=== PATIENT | male | born 1945 | race Caucasian/White ===

== ENCOUNTER → 2021-12-02 | Outpatient (CLI) | payer MEDICARE | LOC: COL.RAD 09:01 | DX: C61 Malignant neoplasm of prostate (principal); N20.0 Calculus of kidney | CPT/HCPCS: A9503; Q9967 ==

== ENCOUNTER 2021-12-18 11:43 | Inpatient (IN) | payer MEDICARE ==
[~2021-12-18] VITALS: Ht 177.8 cm; Wt 76.5 kg
[2022-01-09] VITALS (10 sets, daily range): BP systolic 102–150; BP diastolic 57–80; PULSE 70–89; TEMP 97.7–98.3
[2022-01-09] MEDS ORDERED: ZOCOR 20MG20 MG PO (06:10)
[2022-01-09] MEDS ORDERED: ZYRTEC10MGSGL PO (06:11)
[2022-01-09] MEDS ORDERED: PRILOSEC 20MG20 MG PO (06:11)
[2022-01-09] MEDS ORDERED: FLOMAX 0.40.4 MG/CAP PO (06:11)
--- NOTE | 2022-01-09 06:23 | NUR ---
The patient ambulated back to [facility] independently using a steady gait and appeared to tolerate the activity well. Vital signs obtained. Consent signed. 18G IV started in left hand with one stick, LR infusing without difficulty. Assessment completed. Warm blanket provided. , Michaela, is at his bedside. Call light is within reach. The patient denies any further needs at this time. Will continue to monitor the patient.
--- NOTE | 2022-01-09 13:12 | NUR ---
Patient received from [facility] in [facility]. Patient to room 327. Patient at bedside. Patient awake & alert. He does report pain at the end of his penis. Toradol given per orders, did verify with [facility] it was not given in [facility] or [facility]. Ivf per orders. Garcia to DD with slight blood tinged urine. Vitals stable on O2, Blood pressures on soft side. Lap site x6 edges well approximated. Abdomen soft, patient is already belching, no flatus. Report sore thorat with liquids, denies nausea. Will closely monitor.
--- NOTE | 2022-01-09 18:02 | NUR ---
Patient continues to do well. He has been up and ambulated halls x2 and done well. Vitals stable. Ivf per orders. Garcia to DD with adeuqate urine output, slightly blood tinged. He continues to belch, no flatus yet. Scds ble. WIll monitor.
--- NOTE | 2022-01-09 23:08 | NUR ---
PATIENT HERE FOR ROBOTIC PROSTATECTOMY. PATIENT IS RESTING IN BED UPON ARRIVAL. PATIENT REPORTS MILD PAIN IN ABDOMEN AND ESOPHAGUS BUT REPORTS IT BEING TOLERABLE. PATIENT'S LAP SITES X6 ARE WELL-APPROXIMATED WITH GLUE. PATIENT DENIES ANY NAUSEA OR VOMITING AND HAS NOT PASSED GAS AT THIS TIME. PATIENT'S EVENING MEDICATION GIVEN. PATIENT IN BED WITH CALL LIGHT NEAR.
[2022-01-10 00:06] VITALS: BP 110/60; PULSE 71; TEMP 98
[2022-01-10 04:45] VITALS: BP 102/49; PULSE 83; TEMP 98.5
[2022-01-10 06:34] LABS: HEMATOCRIT 41.5 % (42.0-52.0); HEMOGLOBIN 14.1 g/dl (13.5-18.0)
--- NOTE | 2022-01-10 06:43 | NUR ---
CALLED DR. ROGERS ABOUT OUTPUT FOR THIS PATIENT. OUTPUT WAS 150 OVERNIGHT. KEN INSTRUCTED TO GIVE BOLUS NS TO INCREASE OUTPUT. PATIENT WAS ALSO INSTRUCTED TO INCREASE FLUID INTAKE TOLERATED. FORWARDED INFORMATION TO DAY SHIFT NURSE.
[2022-01-10 06:46] LABS: CALCIUM 8.2 mg/dL (8.4-10.2); CREATININE, serum 0.98 mg/dL (0.72-1.25); POTASSIUM 4.5 mmol/L (3.5-4.5)
--- NOTE | 2022-01-10 07:22 | NUR ---
Patient up and we ambulated halls, he did well. Sitting up in chair. Going to order breakfast. He is passing flatus. Denies nausea. Abdomen soft. Incisions edges well approximated. Ivf per orders Ivf bolous completed. Garcia to DD with pink tinged output.
[2022-01-10 07:46] VITALS: BP 118/73; PULSE 69; TEMP 97.6
--- NOTE | 2022-01-10 11:59 | NUR ---
Patient sitting up in chair. at bedside. We started monteiro education, leg bag teaching provided. Leg bag on at this time. He is drinking adequately. Urine output has increased. IVf per orders. Will monitor. He is hopeful to get home today
[2022-01-10 12:00] VITALS: BP 114/78; PULSE 68; TEMP 97.4
--- NOTE | 2022-01-10 13:25 | NUR ---
Patient ate a light lunch, reports it was hurting his throat. He was up and drained leg bag independently. Will await his to return for discharge.
--- NOTE | 2022-01-10 14:16 | NUR ---
SW met with patient to complete intake. Patient states that he lives in [facility] with spouse Stacia [phone]. Patient states that he does not utilize any DME, and is independent with ADL's. Patient state that his PCP is Dr. Arshad, pharmacy is [facility], and DPOA is daughter Linnea Angie [phone] Patient states his plan is to return to his home upon DC. SW will continue to follow. DC plan: home
--- NOTE | 2022-01-10 14:57 | NUR ---
Patient ready for discharge home. We reviewed all discharge information. Patient and deny questions or concerns. They are aware of follow up appt. Diet & activity reviewed. [facility] & calling with questions or concerns discussed. Patient wheeled out with all belongings, his taking him home.
== END 2022-01-10 14:59 | disposition home or self-care (01) | DRG 708 ==
LOC: INPTSU 01-09 05:37 → SURG 01-09 05:37
PROVIDERS: ADMIT Urology
PROC: 07BC4ZZ Excision of Pelvis Lymphatic, Percutaneous Endoscopic Approach (ICD-10-PCS; 2022-01-09)
PROC: 8E0W4CZ Robotic Assisted Procedure of Trunk Region, Percutaneous Endoscopic Approach (ICD-10-PCS; 2022-01-09)
PROC: 0VT04ZZ Resection of Prostate, Percutaneous Endoscopic Approach (ICD-10-PCS; principal; 2022-01-09 07:30)
DX: C61 Malignant neoplasm of prostate (principal); K21.9 Gastro-esophageal reflux disease without esophagitis; E78.5 Hyperlipidemia, unspecified; F41.9 Anxiety disorder, unspecified; G43.909 Migraine, unspecified, not intractable, without status migrainosus
CPT/HCPCS: A4314; A9284; J0690; J1100; J1885; J2250; J2405; J2704; J3010; J7030; J7120